=== PATIENT | male | born 1955 | race Caucasian/White ===

== ENCOUNTER 2024-01-26 10:24 | Emergency (ER) | payer OTHER ==
[~2024-01-26] VITALS: Ht 172.7 cm; Wt 95.4 kg
[2024-01-26 10:38] VITALS: PULSE 54; RESP 13; O2SAT 98
[2024-01-26] MEDS: SODIUM CHLORIDE 0.9% 1,000 ML IV ONE ×3 (10:59→18:09)
[2024-01-26 11:19] LABS: Basophils # (auto) 0.1 10 ^3/uL (0-0.2); Basophils % (auto) 0.6 % (0.0-2.0); Eosinophils # (auto) 0.2 10 ^3/uL (0-0.8); Eosinophils % (auto) 2.2 % (0.0-7.0); Hematocrit 37.8 % (41.0-53.0); Hemoglobin 12.9 g/dL (13.5-17.5); Lymphocytes # (auto) 1.8 10 ^3/uL (0.4-5.4); Lymphocytes % (auto) 18.8 % (10.0-50.0); Mean Corpuscular Hemoglobin 33.7 pg (28.0-32.0); Mean Corpuscular Hgb Conc. 34.2 g/dL (32.0-36.0); Mean Corpuscular Volume 98.7 fL (80.0-100.0); Monocytes # (auto) 1.1 10 ^3/uL (0-1.3); Monocytes % (auto) 11.3 % (0.0-12.0); Neutrophils # (auto) 6.5 10 ^3/uL (1.6-8.6); Neutrophils % (auto) 67.1 % (37.0-80.0); Nucleated Red Blood Cells % 0.1 %; Platelet Count (auto) 237 10^3/uL (140-450); Red Blood Cells 3.83 10^6/uL (4.5-5.90); Red Cell Distribution Width 13.1 % (11.8-14.3); White Blood Cell 9.7 10^3/uL (4.4-10.8)
[2024-01-26 11:40] LABS: Alanine Aminotransferase 14 U/L (7-40); Albumin 3.4 g/dL (3.2-4.8); Alkaline Phosphatase 199 U/L (46-116); Anion Gap 6 (5-15); Aspartate Aminotransferase 23 U/L (13-40); BUN/Creatinine Ratio 17.9 (10.0-20.0); Bilirubin, Total 0.8 mg/dL (0.2-1.0); Blood Urea Nitrogen 46 mg/dL (9-23); Calcium 9.1 mg/dL (8.7-10.4); Carbon Dioxide 23 mmol/L (20-30); Chloride 100 mmol/L (98-107); Glucose 103 mg/dL (74-106); Potassium 5.5 mmol/L (3.5-5.1); Sodium 129 mmol/L (136-145); Total Protein 6.2 g/dL (5.7-8.2)
[2024-01-26 12:24] LABS: Urine Bacteria None Seen /hpf (None Seen)
[2024-01-26 12:44] LABS: Urine Blood Negative /uL (Negative); Urine Clarity Clear (Clear); Urine Color Yellow (Yellow); Urine Protein, UAD Negative (Negative); Urine Specific Gravity 1.011 (1.001-1.035); Urine Urobilinogen Normal (Negative); Urine WBC 1 /hpf (0 - 3); Urine pH 6.5 (5.0-9.0)
[2024-01-26] MEDS: CALCIUM GLUC 1,000mg/50ml-NS 50 ML IV ONE (14:13)
[2024-01-26] MEDS: SODIUM ZIRCONIUM CYCL 10 GM PAK PO ONE ×2 (14:52→18:11)
[2024-01-26] MEDS: ALBUTEROL SULF 2.5 MG/0.5ML(0.5%) NEB SOLN NEB ONE (14:54)
[2024-01-26] MEDS: SODIUM BICARB 8.4% 50Meq/50ml SYR Vial IV ONE ×2 (15:00→18:11)
[2024-01-26] MEDS: DEXTROSE (50%) 50ML SYRG IV ONE (15:16)
[2024-01-26] MEDS: InsuLIN REG 1unit/0.01ml Soln (100units/ml) IV ONE (15:17)
[2024-01-26 16:08] LABS: Creatinine, Urine 116.61 mg/dL (30.0-125.0)
[2024-01-26 16:59] LABS: Chloride 102 mmol/L (98-107); Potassium 5.2 mmol/L (3.5-5.1); Sodium 129 mmol/L (136-145)
[2024-01-26 17:00] LABS: Anion Gap 7 (5-15); Carbon Dioxide 20 mmol/L (20-30)
[2024-01-26 17:05] LABS: BUN/Creatinine Ratio 17.7 (10.0-20.0); Blood Urea Nitrogen 43 mg/dL (9-23); Glucose 106 mg/dL (74-106)
[2024-01-26 19:17] LABS: Chloride 102 mmol/L (98-107); Potassium 4.1 mmol/L (3.5-5.1); Sodium 131 mmol/L (136-145)
[2024-01-26 19:18] LABS: Anion Gap 7 (5-15); Carbon Dioxide 22 mmol/L (20-30)
[2024-01-26 19:19] LABS: Calcium 8.6 mg/dL (8.7-10.4)
[2024-01-26 19:23] LABS: Glucose 120 mg/dL (74-106)
[2024-01-26 19:24] LABS: BUN/Creatinine Ratio 17.6 (10.0-20.0); Blood Urea Nitrogen 42 mg/dL (9-23)
[2024-01-26 19:45] VITALS: PULSE 76; RESP 14; O2SAT 97
[2024-01-26 20:00] VITALS: TEMP 97.5
[2024-01-26 20:30] LABS: Magnesium 2.3 mg/dL (1.6-2.6)
[2024-01-26 20:32] LABS: Phosphorus 4.7 mg/dL (2.4-5.1)
[2024-01-26 22:00] VITALS: BP 148/105; PULSE 77; RESP 15; O2SAT 90
[2024-01-28 08:42] LABS: Hepatitis B Surface Antigen Negative (Negative)
[2024-01-28 09:04] LABS: Hepatitis C Antibody Negative (Negative)
== END 2024-01-26 22:31 | disposition home or self-care (01) ==
LOC: EDBD 10:24 → ER 10:24
DX: R55 Syncope and collapse (principal); E87.5 Hyperkalemia; E87.1 Hypo-osmolality and hyponatremia; N17.9 Acute kidney failure, unspecified; I12.9 Hypertensive chronic kidney disease with stage 1 through stage 4 chronic kidney disease, or unspecified chronic kidney disease; N18.9 Chronic kidney disease, unspecified; R41.82 Altered mental status, unspecified; R42 Dizziness and giddiness; Z79.899 Other long term (current) drug therapy
CPT/HCPCS: 36415; 70450; 71045; 76775; 80048; 80053; 81001; 82043; 82306; 82570; 82962; 83735; 83880; 83930; 83935; 83970; 84100; 84156; 84484; 85025; 86803; 87340; 93005; 94640; 96361; 96365; 96375; 96376; 99285; J0613; J1815; J7030; J7042